=== PATIENT | male | born 1995 | race Caucasian/White ===

== ENCOUNTER → 2022-01-21 | Outpatient (CLI) | payer OTHER ==
--- NOTE | 2022-01-21 10:35 | US ---
EXAMINATION TYPE: US scrotum with doppler. Grayscale and color Doppler Duplex imaging performed of karli he scrotum. DATE OF EXAM: 01/21/2022 COMPARISON: NONE CLINICAL HISTORY: N50.89 OTHER SPECIFIED DISORDERS. enlarged right vas deferens on CT at [facility], patien t has on and off mild pain on the right EXAM MEASUREMENTS: TESTICLES: Right Testicle: 4.5 x 3.4 x 2.3 cm Left Testicle: 5.0 x 3.1 x 2.3 cm EPIDIDYMIS HEAD: Right Epididymis: 1.0 cm Left Epididymis: 1.4 cm Doppler performed to assess for testicular vascularity; good bilateral color flow and waveforms are s een. There is no evidence of testicular torsion. Presence of hydroceles: mild on the right Presence of varicoceles: no IMPRESSION: Small right-sided hydrocele noted.
== END | disposition home or self-care (01) ==
LOC: RADUSWWP 09:38
PROVIDERS: ATTEND Urology
DX: N43.3 Hydrocele, unspecified (principal)
CPT/HCPCS: 76870; 93975